=== PATIENT | female | born 1970 | race Caucasian/White ===

== ENCOUNTER 2017-11-08 11:59 | Day surgery (SDC) | payer OTHER ==
[2017-11-08] MEDS ORDERED: LIDOCAINE 2% (SDV) 5 ML INJ (13:28)
[2017-11-08] MEDS ORDERED: PROPOFOL 60 ML (13:28)
== END 2017-11-08 14:37 | disposition home or self-care (01) ==
LOC: GIL 11:59
DX: K29.50 Unspecified chronic gastritis without bleeding (principal); B96.81 Helicobacter pylori [H. pylori] as the cause of diseases classified elsewhere; K21.9 Gastro-esophageal reflux disease without esophagitis; E66.9 Obesity, unspecified; Z68.42 Body mass index [BMI] 45.0-49.9, adult; Z88.8 Allergy status to other drugs, medicaments and biological substances
CPT/HCPCS: 43239; 88305; 88312